=== PATIENT | male | born 1985 | race Caucasian/White ===

== ENCOUNTER → 2016-09-03 | Outpatient (CLI) | payer SELFPAY ==
[~2016-09-03] MED LIST: AMOX500C2; AMOX500C2 PO; AZTH250C PO; GUAI50GR; IBUP-792; METH4TAB PO
--- NOTE | 2016-09-03 13:50 | Diagnostic Imaging Report ---
Scrotal ultrasound. INDICATION: Left-sided scrotal pain and swelling. FINDINGS: The right testicle is 5.9 x 2.6 x 3.5 cm. The left testicle is 5.1 x 2.8 x 3.9 cm. There is a 5-mm simple cyst in the epididymis head on the right side. There is mild hyperemia in the left epididymis and mild left hydrocele. The left testicle demonstrates prominent intratesticular vessel with color flow seen. Bilateral arterial waveforms are demonstrated in the testicles. There is no mass otherwise. Symmetric vascularity in the testicles with arterial and venous waveforms are noted. No varicocele seen. IMPRESSION: There is hyperemia in the left epididymis and minimal left hydrocele suggestive of epididymitis. Dictated by: Dictated on workstation # [id number]
== END ==
LOC: RAD 12:23
PROVIDERS: ATTEND Nurse Practitioner Family
DX: Z00.00 Encounter for general adult medical examination without abnormal findings (principal); N50.812 Left testicular pain
CPT/HCPCS: 76870

== ENCOUNTER 2017-01-20 22:01 | Emergency (ER) | payer SELFPAY ==
[~2017-01-20] VITALS: Ht 190.5 cm; Wt 117.9 kg
[2017-01-21 00:02] LABS: BASOPHILS % (AUTO) 0 % (0-10); EOSINOPHILS # (AUTO) 0.1 10^3/uL (0.0-0.3); EOSINOPHILS % (AUTO) 1 % (0-10); LYMPHOCYTES # (AUTO) 1.5 X 10^3 (1.0-4.0); LYMPHOCYTES % (AUTO) 19 % (12-44); MEAN CORPUSCULAR HEMOGLOBIN 30 PG (25-34); MEAN CORPUSCULAR HGB CONC 35 G/DL (32-36); MEAN CORPUSCULAR VOLUME 88 FL (80-99); MEAN PLATELET VOLUME 11.4 FL (7.4-10.4); MONOCYTES # (AUTO) 0.6 X 10^3 (0.0-1.0); MONOCYTES % (AUTO) 9 % (0-12); NEUTROPHILS # (AUTO) 5.3 X 10^3 (1.8-7.8); NEUTROPHILS % (AUTO) 71 % (42-75); PLATELET COUNT 212 10^3/uL (130-400); RED BLOOD COUNT 4.87 10^6/uL (4.35-5.85); RED CELL DISTRIBUTION WIDTH 12.2 % (10.0-14.5); WHITE BLOOD COUNT 7.6 10^3/uL (4.3-11.0)
[2017-01-21 00:02] LABS: BILIRUBIN,URINE NEGATIVE (NEGATIVE); KETONES,URINE NEGATIVE (NEGATIVE); LEUKOCYTE ESTERASE ,URINE 1+ (NEGATIVE); NITRITE,URINE NEGATIVE (NEGATIVE); PH,URINE 6 (5-9); PROTEIN,URINE 1+ (NEGATIVE); UROBILINOGEN,URINE NORMAL (NORMAL)
[2017-01-21 00:12] LABS: SQUAMOUS EPITHELIAL CELL,UR RARE /HPF; WBC,URINE RARE /HPF
[2017-01-21 00:20] LABS: ALANINE AMINOTRANSFERASE 14 U/L (0-55); ALBUMIN 4.5 G/DL (3.2-4.5); ANION GAP 11 MMOL/L (5-14); ASPARTATE AMINO TRANSFERASE 15 U/L (5-34); BILIRUBIN,TOTAL 0.6 MG/DL (0.1-1.0); BLOOD UREA NITROGEN 14 MG/DL (7-18); BUN/CREATININE RATIO 16; CALCIUM 9.5 MG/DL (8.5-10.1); CARBON DIOXIDE 23 MMOL/L (21-32); CHLORIDE 108 MMOL/L (98-107); GFR ESTIMATED > 60; GLUCOSE 101 MG/DL (70-105); POTASSIUM 3.9 MMOL/L (3.6-5.0); SODIUM 142 MMOL/L (135-145); TOTAL PROTEIN 7.2 G/DL (6.4-8.2)
--- NOTE | 2017-01-21 00:29 | ED General ---
General Chief Complaint: General Problems/Pain Stated Complaint: HIGH BLOOD PRESSURE/LIGHTHEADEDNESS Nursing Triage Note: patient reports was pitching to his daughter then decided to drive to [place] from [place] for food. patient states at stop light he had a weird feeling and began to panic and his daughter started to cry, patient reports stopping at EMS station 2 and having vital checked and was advised to come here for his laxmi sake Nursing Sepsis Screen: No Definite Risk Source of Information: Patient Exam Limitations: No Limitations History of Present Illness Time Seen by Provider: 23:20 Initial Comments This 31-year-old gentleman presents to the emergency room with complaints of dizziness and a sense of dysphoria while riding in the car not long before arrival. 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 On the way home he felt lightheaded and dizzy and had a general sensation of dysphoria. He stopped that and EMS station. His vital signs were checked and his blood pressure and heart rate were elevated. He denies any pain or shortness of breath. No palpitations. He occasionally drinks alcohol and had 3 beers last night. He denies any drug use. He has no known health problems except for being overweight. The EMS crew advised that he present to the emergency room. air sampling and monitoring shows normal sinus rhythm. Vital signs are stable. Allergies and Home Medications Allergies Coded Allergies: Penicillins (Verified Allergy, Unknown, 01/20/17) Home Medications No Active Prescriptions or Reported Meds Constitutional: see HPI EENTM: no symptoms reported Respiratory: no symptoms reported Cardiovascular: see HPI Gastrointestinal: no symptoms reported Genitourinary: no symptoms reported Musculoskeletal: no symptoms reported Skin: no symptoms reported Psychiatric/Neurological: See HPI Hematologic/Lymphatic: No Symptoms Reported Past [id number]-Vpecrp-Zbztqk Hx Patient Social History Alcohol Use: Occasionally Uses Recreational Drug Use: No Smoking Status: Never a Smoker Recent Foreign Travel: No Contact w/Someone Who Travel: No Recent Infectious Disease Expo: No Surgeries HX Surgeries: Yes Surgeries: Appendectomy, Orthopedic Respiratory Hx Respiratory Disorders: No Cardiovascular Hx Cardiac Disorders: No Neurological Hx Neurological Disorders: No Reproductive System Hx Reproductive Disorders: No Genitourinary Hx Genitourinary Disorders: No Gastrointestinal Hx Gastrointestinal Disorders: No Musculoskeletal Hx Musculoskeletal Disorders: No Endocrine Hx Endocrine Disorders: No HEENT HX ENT Disorders: No Cancer Hx Cancer: No Psychosocial Hx Psychiatric Problems: No Integumentary HX Skin/Integumentary Disorder: No Physical Exam Vital Signs Vital Sign - Last 12Hours 01/20/17 22:12 Temp 98.4 Pulse 110 Resp 18 B/P (MAP) 127/96 Pulse Ox 99 Capillary Refill : Less Than 3 Seconds General Appearance: No Apparent Distress, WD/WN HEENT: PERRL/EOMI, Normal ENT Inspection, Pharynx Normal Neck: Normal Inspection Respiratory: Lungs Clear, Normal Breath Sounds, No Accessory Muscle Use, No Respiratory Distress Cardiovascular: Regular Rate, Rhythm, No Edema, No Murmur Gastrointestinal: Normal Bowel Sounds, Non Tender, Soft Extremity: Normal Inspection, No Pedal Edema Neurologic/Psychiatric: Alert, Oriented x3, No Motor/Sensory Deficits, Normal Mood/Affect, limnologist II-XII Norm as Tested Skin: Normal Color, Warm/Dry Progress/Results/Core Measures Results/Orders Lab Results Laboratory Tests Test 01/20/17 23:48 01/20/17 23:51 Range/Units White Blood Count 7.6 4.3-11.0 10^3/uL Red Blood Count 4.87 4.35-5.85 10^6/uL Hemoglobin 14.8 13.3-17.7 G/DL Hematocrit 43 40-54 % Mean Corpuscular Volume 88 80-99 FL Mean Corpuscular Hemoglobin 30 25-34 PG Mean Corpuscular Hemoglobin Concent 35 32-36 G/DL Red Cell Distribution Width 12.2 10.0-14.5 % Platelet Count 212 130-400 10^3/uL Mean Platelet Volume 11.4 H 7.4-10.4 FL Neutrophils (%) (Auto) 71 42-75 % Lymphocytes (%) (Auto) 19 12-44 % Monocytes (%) (Auto) 9 0-12 % Eosinophils (%) (Auto) 1 0-10 % Basophils (%) (Auto) 0 0-10 % Neutrophils # (Auto) 5.3 1.8-7.8 X 10^3 Lymphocytes # (Auto) 1.5 1.0-4.0 X 10^3 Monocytes # (Auto) 0.6 0.0-1.0 X 10^3 Eosinophils # (Auto) 0.1 0.0-0.3 10^3/uL Basophils # (Auto) 0.0 0.0-0.1 10^3/uL Sodium Level 142 135-145 MMOL/L Potassium Level 3.9 3.6-5.0 MMOL/L Chloride Level 108 H 98-107 MMOL/L Carbon Dioxide Level 23 21-32 MMOL/L Anion Gap 11 5-14 MMOL/L Blood Urea Nitrogen 14 7-18 MG/DL Creatinine 0.90 0.60-1.30 MG/DL Estimat Glomerular Filtration Rate > 60 BUN/Creatinine Ratio 16 Glucose Level 101 70-105 MG/DL Calcium Level 9.5 8.5-10.1 MG/DL Total Bilirubin 0.6 0.1-1.0 MG/DL Aspartate Amino Transf (AST/SGOT) 15 5-34 U/L Alanine Aminotransferase (ALT/SGPT) 14 0-55 U/L Alkaline Phosphatase 59 40-136 U/L Total Protein 7.2 6.4-8.2 G/DL Albumin 4.5 3.2-4.5 G/DL Urine Color YELLOW Urine Clarity CLEAR Urine pH 6 5-9 Urine Specific [place] 1.020 1.016-1.022 Urine Protein 1+ H NEGATIVE Urine Glucose (UA) NEGATIVE NEGATIVE Urine Ketones NEGATIVE NEGATIVE Urine Nitrite NEGATIVE NEGATIVE Urine Bilirubin NEGATIVE NEGATIVE Urine Urobilinogen NORMAL NORMAL MG/DL Urine Leukocyte Esterase 1+ H NEGATIVE Urine RBC (Auto) NEGATIVE NEGATIVE Urine RBC NONE /HPF Urine WBC RARE /HPF Urine Squamous Epithelial Cells RARE /HPF Urine Crystals NONE /LPF Urine Bacteria TRACE /HPF Urine Casts NONE /LPF Urine Mucus SMALL H /LPF Urine Other FEW SPERM H /HPF Urine Culture Indicated NO My Orders Orders - CARL PARHAM MD Cbc With Automated Diff (01/20/17 23:21) Comprehensive Metabolic Panel (01/20/17 23:21) Ua Culture If Indicated (01/20/17 23:21) Saline Lock/Iv-Start (01/20/17 23:21) Vital Signs/I&O Blood Pressure Mean: 106 Progress Note : Progress Note Workup was essentially unremarkable. Patient was feeling well at the time of dismissal. He was advised to seek medical attention again if symptoms become recurrent. Departure Impression Impression: Primary Impression: Lightheadedness Disposition: 01 HOME, SELF-CARE Condition: Improved Departure-Patient Inst. Decision time for Depature: 00:25 Referrals: NO,LOCAL PHYSICIAN (PCP/Family) Primary Care Physician Patient Instructions: Dizziness, Nonvertigo, (DC) Add. Discharge Instructions: Stay well-hydrated. Follow up with your primary care provider in the near future. Return to care if symptoms worsen. All discharge instructions reviewed with patient and/or family. Voiced understanding. Scripts No Active Prescriptions or Reported Meds CARL PARHAM MD Jan 21, 2017 00:28
[2017-01-21 00:32] VITALS: BP 141/88
== END 2017-01-21 00:32 | disposition home or self-care (01) ==
LOC: EDUNIT# 22:01 → ER 22:04
DX: R42 Dizziness and giddiness (principal)
CPT/HCPCS: 36415; 80053; 81000; 85025

== ENCOUNTER 2017-03-16 18:10 | Emergency (ER) | payer SELFPAY ==
[~2017-03-16] VITALS: Ht 190.5 cm; Wt 117.9 kg
--- NOTE | 2017-03-16 18:23 | ED Chest Pain ---
General Chief Complaint: Chest Pain Stated Complaint: CHEST PAIN Source: patient Exam Limitations: no limitations History of Present Illness Time seen by provider: 18:20 Initial Comments Patient presents to ER by private conveyance with a chief complaint of pressure in his chest and neck and head that started around 1400 today. He denies any numbness or tingling her pain presently. He says this is been intermittent for the past month. First time it occurred at a stoplight and he had to stop what he was doing. His episodes last about 10 seconds to a few minutes. One time he had to wash his face and sit down for a while. He does not describe any pain, nausea, shortness of breath. However he does say that he had a little tingling in the tips of his fingers last week. He denies any history of anxiety or depression. He states he has a family history of father with early heart disease and had to have open heart surgery in his teens. Patient denies any blood pressure problems. He is not on any medicines and does not have a primary care physician. Allergies and Home Medications Allergies Coded Allergies: Penicillins (Verified Allergy, Unknown, 01/20/17) Home Medications No Active Prescriptions or Reported Meds Review of Systems Constitutional: No chills, No diaphoresis, No dizziness, No fever, No malaise, No weight gain, No weight loss EENTM: No Blurred Vision, No Double Vision, No Eye Pain Respiratory: Denies Cough, Denies Shortness of Air, Denies Wheezing Cardiovascular: See HPI, Denies Edema, Denies Irregular Heart Rate, Denies Lightheadedness, Denies Palpitations, Denies Syncope Gastrointestinal: Denies Abdomen Distended, Denies Abdominal Pain, Denies Constipated, Denies Diarrhea, Denies Nausea, Denies Poor Appetite, Denies Vomiting Genitourinary: Denies Burning, Denies Discharge Musculoskeletal: No back pain, No joint pain Skin: No pruritus, No rash Psychiatric/Neurological: See HPI, Denies Anxiety, Denies Depressed, Denies Headache, Denies Numbness Past Oyoezit-Hjamej-Jzhrgq Hx Patient Social History Alcohol Use: Occasionally Uses Recreational Drug Use: No Smoking Status: Never a Smoker Surgeries HX Surgeries: Yes Surgeries: Appendectomy, Orthopedic Respiratory Hx Respiratory Disorders: No Cardiovascular Hx Cardiac Disorders: No Neurological Hx Neurological Disorders: No Reproductive System Hx Reproductive Disorders: No Genitourinary Hx Genitourinary Disorders: No Gastrointestinal Hx Gastrointestinal Disorders: No Musculoskeletal Hx Musculoskeletal Disorders: No Endocrine Hx Endocrine Disorders: No HEENT HX ENT Disorders: No Cancer Hx Cancer: No Psychosocial Hx Psychiatric Problems: No Integumentary HX Skin/Integumentary Disorder: No Physical Exam Vital Signs Vital Sign - Last 12Hours 03/16/17 18:10 Temp 98.0 Pulse 77 Resp 16 B/P (MAP) 110/97 Pulse Ox 98 Capillary Refill : General Appearance: No Apparent Distress, WD/WN, Anxious HEENT: PERRL/EOMI, Pharynx Normal, TM Abnormal (R) (serous effusion) Neck: Full Range of Motion, Normal Inspection, Non Tender, Supple Respiratory: Lungs Clear, Normal Breath Sounds, No Accessory Muscle Use Cardiovascular: Regular Rate, Rhythm, No Edema, No Murmur, Normal Peripheral Pulses Gastrointestinal: Normal Bowel Sounds (we'll afford it your comeback criteria a complex cyst the label on the morning assuming injury awaiting to get set and happens), Non Tender, Soft Extremity: Non Tender (could have), No Calf Tenderness Neurologic/Psychiatric: Alert (the), Oriented x3 Skin: Normal Color, Warm/Dry Progress/Results/Core Measures Results/Orders Lab Results Laboratory Tests Test 03/16/17 18:25 Range/Units White Blood Count 6.4 4.3-11.0 10^3/uL Red Blood Count 5.49 4.35-5.85 10^6/uL Hemoglobin 16.3 13.3-17.7 G/DL Hematocrit 47 40-54 % Mean Corpuscular Volume 85 80-99 FL Mean Corpuscular Hemoglobin 30 25-34 PG Mean Corpuscular Hemoglobin Concent 35 32-36 G/DL Red Cell Distribution Width 12.3 10.0-14.5 % Platelet Count 235 130-400 10^3/uL Mean Platelet Volume 11.0 H 7.4-10.4 FL Neutrophils (%) (Auto) 64 42-75 % Lymphocytes (%) (Auto) 26 12-44 % Monocytes (%) (Auto) 8 0-12 % Eosinophils (%) (Auto) 2 0-10 % Basophils (%) (Auto) 0 0-10 % Neutrophils # (Auto) 4.1 1.8-7.8 X 10^3 Lymphocytes # (Auto) 1.6 1.0-4.0 X 10^3 Monocytes # (Auto) 0.5 0.0-1.0 X 10^3 Eosinophils # (Auto) 0.2 0.0-0.3 10^3/uL Basophils # (Auto) 0.0 0.0-0.1 10^3/uL Prothrombin Time 13.7 12.2-14.7 SEC INR Comment 1.1 0.8-1.4 Activated Partial Thromboplast Time 27 24-35 SEC D-Dimer < 0.27 0.00-0.49 UG/ML Sodium Level 139 135-145 MMOL/L Potassium Level 4.1 3.6-5.0 MMOL/L Chloride Level 103 98-107 MMOL/L Carbon Dioxide Level 24 21-32 MMOL/L Anion Gap 12 5-14 MMOL/L Blood Urea Nitrogen 11 7-18 MG/DL Creatinine 0.96 0.60-1.30 MG/DL Estimat Glomerular Filtration Rate > 60 BUN/Creatinine Ratio 11 Glucose Level 99 70-105 MG/DL Calcium Level 10.1 8.5-10.1 MG/DL Magnesium Level 2.2 1.8-2.4 MG/DL Total Bilirubin 1.3 H 0.1-1.0 MG/DL Aspartate Amino Transf (AST/SGOT) 17 5-34 U/L Alanine Aminotransferase (ALT/SGPT) 22 0-55 U/L Alkaline Phosphatase 76 40-136 U/L Myoglobin 31.6 10.0-92.0 NG/ML Troponin I < 0.30 <0.30 NG/ML Total Protein 8.1 6.4-8.2 GM/DL Albumin 5.0 H 3.2-4.5 GM/DL My Orders Orders - BLADIMIRNITA J Ekg Tracing (03/16/17 18:11) Cbc With Automated Diff (03/16/17 18:23) Magnesium (03/16/17 18:23) Chest 1 View, Ap/Pa Only (03/16/17 18:23) Cardiac Profile 1 (03/16/17 18:23) Comprehensive Metabolic Panel (03/16/17 18:23) Myoglobin Serum (03/16/17 18:23) Protime With Inr (03/16/17 18:23) Partial Thromboplastin Time (03/16/17 18:23) O2 (03/16/17 18:23) Monitor-Rhythm Ecg Trace Only (03/16/17 18:23) Lipid Panel (03/17/17 06:00) Aspirin Chewable Tablet (Baby Aspirin Ch (03/16/17 18:30) Saline Lock/Iv-Start (03/16/17 18:23) Fibrin Degradation Products (03/16/17 18:23) Medications Given in ED Current Medications Medications Dose Ordered Sig/Katie Route Start Time Stop Time Status Last Admin Dose Admin Aspirin 324 mg ONCE ONCE PO 03/16/17 18:30 03/16/17 18:31 DC 03/16/17 18:37 324 MG Vital Signs/I&O Vital Sign - Last 12Hours 03/16/17 18:10 Temp 98.0 Pulse 77 Resp 16 B/P (MAP) 110/97 Pulse Ox 98 Progress Note : Time: 18:28 Progress Note Patient with intermittent short-lived nebulous symptoms of chest and head pressure. He does have a right-sided otitis media effusion however anxiety would be a better diagnosis to fit his symptoms of finger tingling, and general malaise that comes and goes rapidly. We will go ahead and rule out a cardiac origin here and then push and to follow-up with a primary care physician. ECG Initial ECG Impression Date: Mar 16, 2017 Initial ECG Impression Time: 18:14 Initial ECG Rate: 98 Initial ECG Rhythm: Normal Sinus Initial ECG Intervals: Normal Initial ECG Impression: Normal Initial ECG Comparisson: No Previous ECG Available Comment No ST wave elevation or depression. Diagnostic Imaging Diagonstic Imaging: Xray Plain Films/CT/US/NM/MRI: chest Comments NAME: FERNANDA PONCE [facility] REC#: [id number] PT STATUS: REG ER : 1985 PHYSICIAN: NITA GARRISON MD ADMIT DATE: 03/16/17/ER Draft Date of Exam:03/16/17 CHEST 1 VIEW, AP/PA ONLY INDICATION: Chest pressure and hypertension. TECHNIQUE: PA chest obtained at 6:42 p.m. FINDINGS: Heart and mediastinal silhouette are normal in appearance. The lungs are clear. There is no pneumothorax or pleural fluid. IMPRESSION: Negative chest. Dictated on workstation # [id number] Dict: 03/16/17 1851 Trans: 03/16/17 1854 [id number] Interpreted by: GWENDOLYN FUNES MD Electronically signed by: Reviewed: Reviewed by Me Departure Impression Impression: Primary Impression: Chest tightness or pressure Disposition: 01 HOME, SELF-CARE Condition: Stable Departure-Patient Inst. Decision time for Depature: 19:31 Referrals: NO,LOCAL PHYSICIAN (PCP) Primary Care Physician Patient Instructions: Chest Pain That Is Not Caused by the Heart (DC) Add. Discharge Instructions: We did not find any dangerous organic cause for your symptoms tonight. Your heart does not appear to be the origin of your chest pressure. I would highly recommend that you keep your follow-up appointment with [facility] on April 07 at 8 AM. I will forward a copy of this note for their records. We discussed doing those deep breathing exercises for 20 breaths if he started having the symptoms again. If you have new or worrisome symptoms such as intense chest pain, nausea vomiting, fevers and you should return to the ER immediately. Otherwise see your PCP. All discharge instructions reviewed with patient and/or family. Voiced understanding. Scripts No Active Prescriptions or Reported Meds Copy Copies To 1: SRIKANTH MEYERS TITUS J Mar 16, 2017 18:23
[2017-03-16] MEDS ORDERED: ASPIRIN 81 MG CHEW (CHILDREN'S ASA) PO ONE (18:30)
[2017-03-16 18:35] LABS: BASOPHILS % (AUTO) 0 % (0-10); EOSINOPHILS # (AUTO) 0.2 10^3/uL (0.0-0.3); EOSINOPHILS % (AUTO) 2 % (0-10); LYMPHOCYTES # (AUTO) 1.6 X 10^3 (1.0-4.0); LYMPHOCYTES % (AUTO) 26 % (12-44); MEAN CORPUSCULAR HEMOGLOBIN 30 PG (25-34); MEAN CORPUSCULAR HGB CONC 35 G/DL (32-36); MEAN CORPUSCULAR VOLUME 85 FL (80-99); MONOCYTES # (AUTO) 0.5 X 10^3 (0.0-1.0); MONOCYTES % (AUTO) 8 % (0-12); NEUTROPHILS # (AUTO) 4.1 X 10^3 (1.8-7.8); NEUTROPHILS % (AUTO) 64 % (42-75); PLATELET COUNT 235 10^3/uL (130-400); RED BLOOD COUNT 5.49 10^6/uL (4.35-5.85); RED CELL DISTRIBUTION WIDTH 12.3 % (10.0-14.5); WHITE BLOOD COUNT 6.4 10^3/uL (4.3-11.0)
[2017-03-16 18:46] LABS: INR 1.1 (0.8-1.4); PROTHROMBIN TIME PATIENT 13.7 SEC (12.2-14.7)
--- NOTE | 2017-03-16 18:54 | Diagnostic Imaging Report ---
INDICATION: Chest pressure and hypertension. TECHNIQUE: PA chest obtained at 6:42 p.m. FINDINGS: Heart and mediastinal silhouette are normal in appearance. The lungs are clear. There is no pneumothorax or pleural fluid. IMPRESSION: Negative chest. Dictated by: Dictated on workstation # [id number]
[2017-03-16 18:55] LABS: ALANINE AMINOTRANSFERASE 22 U/L (0-55); ANION GAP 12 MMOL/L (5-14); ASPARTATE AMINO TRANSFERASE 17 U/L (5-34); BILIRUBIN,TOTAL 1.3 MG/DL (0.1-1.0); BLOOD UREA NITROGEN 11 MG/DL (7-18); BUN/CREATININE RATIO 11; CALCIUM 10.1 MG/DL (8.5-10.1); CARBON DIOXIDE 24 MMOL/L (21-32); CHLORIDE 103 MMOL/L (98-107); CREATININE SERUM 0.96 MG/DL (0.60-1.30); GFR ESTIMATED > 60; GLUCOSE 99 MG/DL (70-105); MAGNESIUM 2.2 MG/DL (1.8-2.4); POTASSIUM 4.1 MMOL/L (3.6-5.0); SODIUM 139 MMOL/L (135-145); TOTAL PROTEIN 8.1 GM/DL (6.4-8.2)
[2017-03-16 19:01] LABS: MYOGLOBIN SERUM 31.6 NG/ML (10.0-92.0)
[2017-03-16 19:38] VITALS: BP 132/98
== END 2017-03-16 19:38 | disposition home or self-care (01) ==
LOC: EDUNIT# 18:10 → ER 18:11
DX: R07.89 Other chest pain (principal); Z90.49 Acquired absence of other specified parts of digestive tract; Z98.890 Other specified postprocedural states; Z82.49 Family history of ischemic heart disease and other diseases of the circulatory system
CPT/HCPCS: 36415; 71010; 80053; 83735; 83874; 84484; 85025; 85379; 85610; 85730; 93005; 93041